=== PATIENT | male | born 2000 | race Caucasian/White ===

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

== ENCOUNTER 2024-11-27 21:42 | Emergency (ER) | payer BC, OTHER ==
[2024-11-27 21:45] VITALS: RESP 16
--- NOTE | 2024-11-27 23:12 | ED ---
Skin/Abscess/FB HPI - General Chief complaint: Skin/Abscess/Foreign Body Stated complaint: Toe Pain Time Seen by Provider: 11/27/24 21:50 Source: patient Mode of arrival: ambulatory Limitations: no limitations - History of Present Illness Initial comments: 23-year-old male presents to the emergency department reporting right great toe pain. States that he has had redness and swelling to his right great toe around his nail which now extends to the top of the foot. He was seen at an urgent care and placed on clindamycin. He has taken 2 doses. States he feels as if the swelling is extending. He denies fevers. No worsening pain. No drainage from the site. No history of MRSA. No other alleviating, precipitating or modifying factors - Related Data Previous Rx's Medication Instructions Recorded Cephalexin [Keflex] 500 mg PO Q6HR #28 cap 11/27/24 Mupirocin 2% Oint [Bactroban 2% 1 applic TOPICAL TID #22 gm 11/27/24 Oint] Sulfamethox-Tmp 800-160Mg [Bactrim 2 each PO Q12HR #28 tab 11/27/24 Ds] Allergies Allergy/AdvReac Type Severity Reaction Status Date / Time amoxicillin Allergy Rash/Hives Verified 11/27/24 21:46 Review of Systems ROS Statement: Those systems with pertinent positive or pertinent negative responses have been documented in the HPI. ROS Other: All systems not noted in ROS Statement are negative. Past Medical History Past Medical History: No Reported History History of Any Multi-Drug Resistant Organisms: None Reported Past Surgical History: No Surgical Hx Reported Past Psychological History: No Psychological Hx Reported Smoking Status: Never smoker Past Alcohol Use History: None Reported Past Drug Use History: None Reported General Exam Limitations: no limitations General appearance: alert, in no apparent distress Head exam: Present: atraumatic, normocephalic, normal inspection Extremities exam: Present: full ROM, other (Patient has redness surrounding the base of the nail on the right toe. No drainage). Absent: pedal edema, joint swelling Course Vital Signs 11/27/24 11/27/24 21:44 23:28 Temperature 97.5 F L 97.9 F Pulse Rate 78 63 Respiratory 16 16 Rate Blood Pressure 143/79 111/69 O2 Sat by Pulse 100 99 Oximetry Medical Decision Making - Medical Decision Making Was pt. sent in by a medical professional or institution (VARUN Hughes, HR OPERATIONS ADVISOR, urgent care, hospital, or correction...) When possible be specific @ -No Did you speak to anyone other than the patient for history (EMS, parent, family, police, friend...)? What history was obtained from this source @ -Spoke with the dad for history Did you review nursing and triage notes (agree or disagree)? Why? @ -I reviewed and agree with nursing and triage notes Were old charts reviewed (outside hosp., previous admission, EMS record, old EKG, old radiological studies, urgent care reports/EKG's, correction records)? Report findings @ -No old charts were reviewed Differential Diagnosis (chest pain, altered mental status, abdominal pain women, abdominal pain men, vaginal bleeding, weakness, fever, dyspnea, syncope, headache, dizziness, GI bleed, back pain, seizure, CVA, palpatations, mental health, musculoskeletal)? @ -Paronychia, cellulitis, ingrown toenails EKG interpreted by me (3pts min.). @ -Not done X-rays interpreted by me (1pt min.). @ -None done CT interpreted by me (1pt min.). @ -None done U/S interpreted by me (1pt. min.). @ -None done What testing was considered but not performed or refused? (CT, X-rays, U/S, labs)? Why? @ -None What meds were considered but not given or refused? Why? @ -None Did you discuss the management of the patient with other professionals (professionals i.e. VARUN Hughes, HR OPERATIONS ADVISOR, lab, RT, psych nurse, protective services social worker, millwright, teacher, naval gunfire liaison officer, nurse case manager)? Give summary @ -No Was smoking cessation discussed for >3mins.? @ -No Was critical care preformed (if so, how long)? @ -No Were there social determinants of health that impacted care today? How? (Homelessness, low income, unemployed, alcoholism, drug addiction, transportation, low edu. Level, literacy, decrease access to med. care, [facility], rehab)? @ -No Was there de-escalation of care discussed even if they declined (Discuss DNR or withdrawal of care, Hospice)? DNR status @ -No What co-morbidities impacted this encounter? (DM, HTN, Smoking, COPD, CAD, Cancer, CVA, ARF, Chemo, Hep., AIDS, mental health diagnosis, sleep apnea, morbid obesity)? @ -None Was patient admitted / discharged? Hospital course, mention meds given and route, prescriptions, significant lab abnormalities, going to OR and other pertinent info. @ -Patient seen and evaluated in bed 31. Thorough history and physical exam was performed. I did recommend cutting the patient's ingrown nails however he would prefer to have this done at a podiatry office at this time. I did attempt to drain the toe to see if there was a portion of paronychia. I am unsuccessful with this. I did place bacitracin to the area. Recommended continuation of the clindamycin. Patient has only taken 2 doses and therefore I do not feel that he has failed the antibiotic yet. I do feel that the patient can should continue his antibiotic. If he has no improvement in 48 hours and the patient can switch to Keflex and Bactrim. He is to do Epsom salt soaks, place bacitracin to the area twice a day and follow-up with podiatry. Return for any new or worsening symptoms. Patient agreeable to plan he was discharged in stable condition Undiagnosed new problem with uncertain prognosis? @ -No Drug Therapy requiring intensive monitoring for toxicity (Heparin, Nitro, Insulin, Cardizem)? @ -No Were any procedures done? @ -No Diagnosis/symptom? @ -Acute paronychia right great toe likely secondary to ingrown toenails Acute, or Chronic, or Acute on Chronic? @ -Acute Uncomplicated (without systemic symptoms) or Complicated (systemic symptoms)? @ -Uncomplicated Side effects of treatment? @ -No Exacerbation, Progression, or Severe Exacerbation? @ -No Poses a threat to life or bodily function? How? (Chest pain, [place], [place], pneumonia, PE, COPD, DKA, ARF, appy, cholecystitis, CVA, Diverticulitis, Homicidal, Suicidal, threat to staff... and all critical care pts) @ -No Disposition Clinical Impression: Toe infection, Paronychia due to ingrown nail Disposition: HOME SELF-CARE Condition: Stable Instructions (If sedation given, give patient instructions): Paronychia (ED) Additional Instructions: Please place bacitracin to the site at least twice a day. I recommend that you see a team supervisor to have your ingrown toenails removed. Try another full day of the clindamycin, if the infection is spreading, switch to the new antibiotics I have prescribed. Return for any new or worsening symptoms Prescriptions: Sulfamethox-Tmp 800-160Mg [Bactrim Ds] 2 each PO Q12HR #28 tab Mupirocin 2% Oint [Bactroban 2% Oint] 1 applic TOPICAL TID #22 gm Cephalexin [Keflex] 500 mg PO Q6HR #28 cap Is patient prescribed a controlled substance at d/c from ED?: No Referrals: None,Stated [Primary Care Provider] - 1-2 days Time of Disposition: 23:22
[2024-11-27] MEDS: BACITRACIN OINT 1 EACH PACKET TOPICAL ONE (23:23)
[2024-11-27 23:31] VITALS: BP 111/69; PULSE 63; TEMP 97.9
== END 2024-11-28 00:39 | disposition home or self-care (01) ==
LOC: EC 21:42
DX: L60.0 Ingrowing nail (principal); Z88.0 Allergy status to penicillin
CPT/HCPCS: 99282